=== PATIENT | female | born 1975 | race Caucasian/White ===

== ENCOUNTER 2017-02-18 20:13 | Emergency (ER) | payer SELFPAY ==
--- NOTE | 2017-02-18 20:52 | XRay Report ---
FINAL REPORT EXAM: XR FOREARM LT HISTORY: fall pain in lower lt arm TECHNIQUE: PRIORS: None. FINDINGS: There is acute transverse traumatic fracture through the distal radius. There is vertical component extending to the articular surface. No significant angulation. The ulna appears intact. The carpal bones demonstrate normal alignment. IMPRESSION: Acute intra-articular fracture of the distal radius
[2017-02-18] MEDS ORDERED: BOOSTRIX IM ONE (22:29)
[2017-02-18] MEDS ORDERED: NORCO 5/325 PO ONE (22:29)
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
[2017-02-19 02:48] VITALS: BP 146/82
== END 2017-02-19 02:48 | disposition home or self-care (01) ==
LOC: ED 20:13
DX: S52.572A Other intraarticular fracture of lower end of left radius, initial encounter for closed fracture (principal); V86.59XA Driver of other special all-terrain or other off-road motor vehicle injured in nontraffic accident, initial encounter; Y93.89 Activity, other specified; Y92.89 Other specified places as the place of occurrence of the external cause; Y99.8 Other external cause status
CPT/HCPCS: 70450; 72125; 90471; 90715; 99284